=== PATIENT | male | born 1985 | race Asian ===

== ENCOUNTER 2021-01-21 21:14 | Emergency (ER) | payer BC, OTHER ==
[~2021-01-21] VITALS: Ht 167.6 cm; Wt 70.3 kg
[2021-01-21 21:17] VITALS: BP 128/85
== END 2021-01-21 21:42 | disposition home or self-care (01) ==
LOC: ER 21:17
DX: J06.9 Acute upper respiratory infection, unspecified (principal); Z20.822 Contact with and (suspected) exposure to COVID-19
CPT/HCPCS: 87426; 99283; C9803; U0003

== ENCOUNTER → 2021-04-03 | Emergency (ER) | payer OTHER ==
[~2021-04-03] VITALS: Ht 170.2 cm; Wt 77.1 kg
== END | disposition home or self-care (01) ==
LOC: ER 06:07
DX: U07.1 COVID-19 (principal)
CPT/HCPCS: 87426; 99283; C9803; U0003